=== PATIENT | female | born 1955 ===

== ENCOUNTER 2018-12-19 09:02 | Inpatient (IN) ==
--- NOTE | 2018-12-13 12:17 | PAT Medication Instructions ---
Medication Instructions Date of Service December 13, 2018 Home Medications atorvastatin 10 mg PO QAM bupropion HCl [Wellbutrin SR] 100 mg PO QDL cholecalciferol (vitamin D3) 1,000 unit PO QDL cyanocobalamin (vitamin B-12) 5,000 mcg SUBLINGUAL QAM insulin lispro 6 unit SUBCUT QDD insulin lispro 36 unit SUBCUT HS ipratropium-albuterol 3 ml INHALATION Q8H PRN isosorbide mononitrate 30 mg PO QAM losartan 50 mg PO QAM metformin 1,000 mg PO BID multivitamin 1 tab PO QAM omeprazole 20 mg PO QAM oxycodone 5 mg PO Q4 PRN zolpidem 10 mg PO HS PRN DO NOT take the morning of surgery cyanocobalamin (vitamin B-12) 5,000 mcg SUBLINGUAL QAM losartan 50 mg PO QAM metformin 1,000 mg PO BID multivitamin 1 tab PO QAM Take morning of surgery With a small sip of water, OTHERWISE NOTHING TO EAT OR DRINK AFTER MIDNIGHT: atorvastatin 10 mg PO QAM bupropion HCl [Wellbutrin SR] 100 mg PO QDL ipratropium-albuterol 3 ml INHALATION Q8H PRN (if needed) isosorbide mononitrate 30 mg PO QAM omeprazole 20 mg PO QAM oxycodone 5 mg PO Q4 PRN (if needed, may be taken up to four hours before surgery) Take evening before surgery insulin lispro 6 unit SUBCUT QDD insulin lispro 36 unit SUBCUT HS ipratropium-albuterol 3 ml INHALATION Q8H PRN (if needed) metformin 1,000 mg PO BID oxycodone 5 mg PO Q4 PRN (if needed) zolpidem 10 mg PO HS PRN (if needed) Other Notes If you have any questions please call us at [phone] or [phone] or [phone] or [phone]
--- NOTE | 2018-12-13 12:30 | Anesthesiology Consultation ---
Date of Service December 13, 2018 Assessment & Plan (1) Encounter for pre-operative examination: CHECK BSG AM DOS Chart Review Chart Review: Acceptable Risk for Surgery and Patient seen in Pre Admission Testing Teaching & Discussion Instructed NPO after midnight before surgery, except medications with 15 cc of water. Medication instructions provided according to the PAT guidelines. History Surgery Operation Date: 12/19/18 12:15 Proposed Procedures p Dorsal Column Stimulator Trial - Geo Robert DO Height/Weight Height: 5 ft 4 in Weight: 77.8 kg Allergies Allergy/AdvReac Type Severity Reaction Status Date / Time No Known Allergies Allergy Verified 12/07/18 11:28 Medications Home Medications Medication Instructions Recorded Confirmed Last Taken atorvastatin 10 mg PO QAM 12/07/18 12/07/18 Unknown bupropion HCl [Wellbutrin SR] 100 mg PO QDL 12/07/18 12/07/18 Unknown cholecalciferol (vitamin D3) 1,000 unit PO QDL 12/07/18 12/07/18 Unknown [Vitamin D3] cyanocobalamin (vitamin B-12) 5,000 mcg SUBLINGUAL QAM 12/07/18 12/07/18 Unknown [Vitamin B-12] insulin lispro 6 unit SUBCUT QDD 12/07/18 12/07/18 Unknown insulin lispro 36 unit SUBCUT HS 12/07/18 12/07/18 Unknown ipratropium-albuterol 3 ml INHALATION Q8H PRN 12/07/18 12/07/18 Unknown isosorbide mononitrate 30 mg PO QAM 12/07/18 12/07/18 Unknown losartan 50 mg PO QAM 12/07/18 12/07/18 Unknown metformin 1,000 mg PO BID 12/07/18 12/07/18 Unknown multivitamin 1 tab PO QAM 12/07/18 12/07/18 Unknown omeprazole 20 mg PO QAM 12/07/18 12/07/18 Unknown oxycodone 5 mg PO Q4 PRN 12/07/18 12/07/18 Unknown zolpidem 10 mg PO HS PRN 12/07/18 12/07/18 Unknown Past Medical History Medical History Anxiety Asthma Bilateral carotid bruits Carotid doppler done 12/14 showed <50% stenosis B/L COPD (chronic obstructive pulmonary disease) Centrolobular emphysema. +SOB with most activity. Noncompliant with inhalers. Instructed to use AM DOS. Sat 97% on RA at PAT. Chronic back pain Depression Diabetes type 2, controlled GERD (gastroesophageal reflux disease) High cholesterol History of kidney stones Hypertension Sleep apnea Has CPAP but has not used it x 1 yr since previous back surgery as she cannot sleep on her back. Exercise / Class Metabolic Activity III < 4 Walking/Shop/Light housework (+SOB with ambulation, pt feels maybe related to pain in addition to asthma/COPD, but denies any CP) Past Surgical History Surgical History History of back surgery X2 History of carpal tunnel release of both wrists Hx of cataract extraction BOTH Hx of cystoscopy Past Anesthesia History No Hx of Anesthesia Complications (other than PONV) and No Family Hx of Anesthesia Complications History of PONV No Hx of Motion Sickness and History of PONV (single episode of severe PONV after carpal tunnel (had GA)) Social History Smoking Status: Current every day smoker tobacco type: cigarettes Smoking cigarettes per day: 2-3 per day Do You Dip or Chew Tobacco: No Hx Alcohol Use: No Hx Substance Use: No Review of Systems Pt denies any recent chest pain, shortness of breath above baseline, palpitations, cough, fever or URI. Physical Exam Vital Signs BP: 122/73 P: 83bpm SPO2: 97% RA T: 98.4 F R: 18 ENMT Mouth: + dentures (upper only) and + edentulous Thyromental Distance: > or= 3.5 Finger Breadths (4) Mallampati Class: II Neck + short neck and + limited neck extension (limited by pain) Respiratory normal respiratory effort Auscultation: lungs clear to auscultation bilaterally Cardiovascular Rate/Rhythm: regular rate and regular rhythm Heart Sounds: no murmur Vessels: + carotid bruit (R>L) Extremities: no edema Testing Laboratory Results 12/13/18 12:44 12/13/18 12:44 PT 10.3 Seconds (9.0-12.0) 12/13/18 12:44 INR 1.0 (0.9-1.1) 12/13/18 12:44 APTT 26.5 Seconds (21.0-31.0) 12/13/18 12:44 Urine Color Yellow 12/13/18 Unknown Urine Appearance Clear (Clear) 12/13/18 Unknown Urine pH 6.0 (4.5-7.5) 12/13/18 Unknown Ur Specific [place] 1.018 (1.000-1.030) 12/13/18 Unknown Urine Protein Negative (Negative) 12/13/18 Unknown Urine Glucose (UA) 3+ (Negative) H 12/13/18 Unknown Urine Ketones Negative (Negative) 12/13/18 Unknown Urine Nitrite Negative (Negative) 12/13/18 Unknown Ur Leukocyte Esterase Trace (Negative) H 12/13/18 Unknown Urine WBC (Auto) 1-5 /hpf (0-5) 12/13/18 Unknown Urine RBC (Auto) 5-10 /hpf (0-4) H 12/13/18 Unknown U Hyaline Cast (Auto) 0 /lpf (0-5) 12/13/18 Unknown U Epithel Cells (Auto) 10-20 /lpf (0-5) H 12/13/18 Unknown Urine Bacteria (Auto) Negative (Negative) 12/13/18 Unknown Blood Type O Positive 12/13/18 12:44 Antibody Screen NEGATIVE 12/13/18 12:44 *Surgeon's office notified of elevated glucose. Nonfasting. Chest X-Ray Date: 12/13/18 Findings: + NAD Stress Test Date: 10/09/13 Type: exercise The patient's baseline EKG shows normal sinus rhythm with diffuse nonspecific ST-T wave changes in anterior lateral leads. Rest echo interpretation: LV wall thickness is normal. LV systolic function is normal with an estimated EF of 60%. There are no regional wall motion abnormali ties identified rest. Stress echo interpretation: There is overall improvement in the LV ejection fraction to 70 to 75%. There are no new regional wall motion normalities david ntified with stress. Other Testing Carotid Doppler 12/14/18 Less than 50% stenosis of internal carotid arteries bilaterally. Left subcla vian stenosis versus occlusion. *This result was faxed to PCP for their continued mgmt.
[2018-12-13 13:33] LABS: Basophils # (auto) 0.02 K/uL (0-0.2); Basophils % (auto) 0.2 %; Eosinophils # (auto) 0.15 K/uL (0-0.5); Eosinophils % (auto) 1.4 %; Immature Granulocytes # (auto) 0.02 K/uL (0.00-0.02); Immature Granulocytes % (auto) 0.2 %; Lymphocytes # (auto) 3.34 K/uL (1.2-3.4); Lymphocytes % (auto) 31.3 %; Mean Corpuscular Hgb Conc 34.1 g/dL (32-36); Mean Corpuscular Volume 81.2 fL (80-100); Monocytes # (auto) 0.52 K/uL (0.11-0.59); Monocytes % (auto) 4.9 %; Neutrophils # (auto) 6.63 K/uL (1.4-6.5); Platelet Count 277 K/uL (130-400); RDW Coefficient of Variation 12.7 % (11.5-14.5); RDW Standard Deviation 36.9 fL (36.4-46.3); Red Blood Count 5.05 M/uL (4.2-5.4); White Blood Count 10.68 K/uL (4.8-10.8)
[2018-12-13 13:36] LABS: Appearance Urine Clear (Clear); Bacteria Urine Automated Negative (Negative); Bilirubin Urine Negative (Negative); Blood Urine Negative (Negative); Cast Urine Automated 0 /lpf (0-5); Color Urine Yellow; Glucose Urine UA 3+ (Negative); Ketones Urine Negative (Negative); Leukocyte Esterase Urine Trace (Negative); Nitrite Urine Negative (Negative); Protein Urine Negative (Negative); Specific Gravity Urine 1.018 (1.000-1.030); Urobilinogen Urine Negative (Negative)
[2018-12-13 13:45] LABS: BUN Creatinine Ratio 7.1 (10-20); Calcium 9.3 mg/dl (8.5-10.1); Est GFR (African American) 106.9; Est GFR (Non-African American) 92.2; Potassium 3.7 mmol/L (3.5-5.1)
[2018-12-13 13:47] LABS: Partial Thromboplastin Time 26.5 Seconds (21.0-31.0); Prothrombin Time 10.3 Seconds (9.0-12.0)
--- NOTE | 2018-12-13 13:50 | XRay Report ---
XR chest Pre-admission PA/Lat CLINICAL HISTORY: Preoperative chest COMPARISON STUDY: No previous studies for comparison. FINDINGS: The cardiac and mediastinal contours are normal. There is no evidence of focal pulmonary co nsolidation. There is no evidence of failure. No pleural effusions are visualized.[ IMPRESSION: No active disease in the chest. Electronically signed by: Master Louis M.D. 12/13/2018 1:48 PM
[~2018-12-19 09:02] MED LIST: ACETAMINOPHEN 500 MG TAB PO SCH; CEFAZOLIN 1000MG 1,000 MG/7.5 ML SYR IV SCH; CeleBREX 200 MG CAP PO SCH; GABAPENTIN 600 MG DOSE PO SCH; LR 15ML/HR IV SCH
[2018-12-19] MEDS ORDERED: ATROPINE SULFATE 0.1 MG/ML 10ML SYR IV PRN (11:49)
[2018-12-19] MEDS ORDERED: ONDANSETRON INJ 2 MG/ML 2 ML VIAL IV PRN ×2 (11:49→15:43)
[2018-12-19] MEDS ORDERED: ePHEDrine sulfate 50 MG/ML AMP IV PRN (11:49)
--- NOTE | 2018-12-19 12:33 | History & Physical Bridge Note ---
Date of Service December 19, 2018 History & Physical Bridge Note I have examined the patient, reviewed the History & Physical and in the interval since the performance of the History & Physical I have noted the following changes of clinical significance: no changes noted
--- NOTE | 2018-12-19 12:34 | History & Physical Report ---
Date of Service December 19, 2018 Assessment & Plan (1) Chronic back pain greater than 3 months duration: Dorsal column stimulator trial Present on Admission?: Yes History of Present Illness Chief Complaint: Chronic back and leg pain Primary Care Provider: NO PCP This is a 62-year-old female that presents with chronic persistent back and leg pain. After failing extensive course of nonoperative care is here for a dorsal column stimulator trial. Allergies Allergy/AdvReac Type Severity Reaction Status Date / Time No Known Allergies Allergy Verified 12/19/18 10:08 Home Medications Home Medications Medication Instructions Recorded Confirmed Type atorvastatin 10 mg PO QAM 12/07/18 12/19/18 History bupropion HCl [Wellbutrin SR] 100 mg PO QDL 12/07/18 12/19/18 History cholecalciferol (vitamin D3) 1,000 unit PO QDL 12/07/18 12/19/18 History [Vitamin D3] insulin lispro 6 unit SUBCUT QDD 12/07/18 12/19/18 History insulin lispro 36 unit SUBCUT HS 12/07/18 12/19/18 History ipratropium-albuterol 3 ml INHALATION Q8H PRN 12/07/18 12/19/18 History isosorbide mononitrate 30 mg PO QAM 12/07/18 12/19/18 History losartan 50 mg PO QAM 12/07/18 12/19/18 History metformin 1,000 mg PO BID 12/07/18 12/19/18 History multivitamin 1 tab PO QAM 12/07/18 12/19/18 History omeprazole 20 mg PO QAM 12/07/18 12/19/18 History oxycodone 5 mg PO Q4 PRN 12/07/18 12/19/18 History zolpidem 10 mg PO HS PRN 12/07/18 12/19/18 History Past Med/Surg History Medical History Anxiety Asthma Bilateral carotid bruits Carotid doppler done 12/14 showed <50% stenosis B/L COPD (chronic obstructive pulmonary disease) Centrolobular emphysema. +SOB with most activity. Noncompliant with inhalers. Instructed to use AM DOS. Sat 97% on RA at PAT. Chronic back pain Depression Diabetes type 2, controlled GERD (gastroesophageal reflux disease) High cholesterol History of kidney stones Hypertension Sleep apnea Has CPAP but has not used it x 1 yr since previous back surgery as she cannot sleep on her back. Surgical History History of back surgery X2 History of carpal tunnel release of both wrists Hx of cataract extraction BOTH Hx of cystoscopy Social History Preferred Language: Lao Communication Ability: Effective Beliefs That Will Affect Care: None Current Living Situation: Alone Feels Safe at Home: Yes Smoking Status: Current every day smoker Tobacco Type: cigarettes Cigarettes Per Day: 2-3 per day Do You Dip or Chew Tobacco: No Second Hand Exposure: No Hx Alcohol Use: No Hx Substance Use: No Physical Exam Physical Exam: Patient is alert and oriented neurologically intact. Results & Data Vital Signs (Past 12 Hours) Vital Signs Temp Pulse Resp BP Pulse Ox 12/19/18 10:13 36.8 C 73 20 156/71 H 98
[2018-12-19] MEDS ORDERED: BUPIVACAINE 0.5 % 5 MG/1 ML MPF 30ML VIAL ONE (12:39)
[2018-12-19] MEDS ORDERED: BACITRACIN INJ 50,000 UNIT VIAL ONE (12:39)
[2018-12-19] MEDS ORDERED: MIDAZOLAM HCL 1 MG/ML 2ML VIAL ONE (12:41)
[2018-12-19] MEDS ORDERED: fentaNYL citrate 100 MCG/2 ML VIAL ONE ×3 (12:41→14:00)
[2018-12-19] MEDS ORDERED: FLOSEAL HEMOSTATIC MATRIX 10ML TOP ONE (13:20)
[2018-12-19] MEDS ORDERED: PROPOFOL IV EMULSION 10 MG/ML 20 ML VIAL IV ONE (13:22)
[2018-12-19] MEDS ORDERED: ONDANSETRON INJ 2 MG/ML 2 ML VIAL ONE (13:22)
[2018-12-19] MEDS ORDERED: DEXAMETHASONE SOD INJ 4 MG/ML VIAL ONE (13:22)
[2018-12-19] MEDS ORDERED: GLYCOPYRROLATE 0.2 MG/ML VIAL ONE (13:22)
[2018-12-19] MEDS ORDERED: NEOSTIGMINE METHYLSULFATE 1 MG/ML 10ML VIAL ONE (13:22)
[2018-12-19] MEDS ORDERED: LIDOCAINE HCL 2% 2 ML VIAL/AMP(20MG/ML) INFIL ONE (13:22)
[2018-12-19] MEDS ORDERED: ROCURONIUM BROMIDE 10 MG/ML 5 ML VIAL ONE (13:22)
[2018-12-19] MEDS ORDERED: ePHEDrine sulfate 50 MG/ML SYR ONE (14:00)
--- NOTE | 2018-12-19 14:01 | Operative Report ---
Post Operative Report Pre & Post Diagnosis Operation Date: 12/19/18 12:05 Pre-Op Diagnosis: Lumbar Post Laminectomy Syndrome Post-Op Diagnosis: Lumbar Post Laminectomy Syndrome Operation Date: 12/20/18 13:05 <No data on this case meets the specified criteria> Procedure Operation Date: 12/19/18 12:05 Actual Procedures #1 T10 laminotomy. #2 placement of a 16-lead dorsal column stimulator paddle with temporary leads. Surgeon Geo Robert, DO Environmental Marketer None Estimated Blood Loss 20 Findings Consistent with Post-Op Diagnosis Specimens None Indications This is a 62-year-old female that presents with chronic persistent back and bilateral leg pain. After failing extensive course of nonoperative care she is here to undergo dorsal column stimulator trial. Description of Procedure Patient was met with identified and informed consent obtained. Patient was then taken to the operative suite underwent intubation and placed in the prone position the Tommy table on top of the Heath frame. All bony prominences well-padded eyes inspected to ensure no external pressure placed upon the peer at this point the thoracic spine was prepped and draped in normal sterile fashion. Sharp dissection with the assistance of Bovie cautery was performed down to and exposing the interlaminar space at T10-T11 bilaterally. Then performed a midline decompression. Decompression was large enough to pass a 16- lead dorsal column stimulator paddle into the canal between T8 and T10. I verified my position with fluoroscopy. After this was complete temporary leads were attached and and by way of a trocar taken to the left flank. There was subsequently attached to the transmitter tested for efficacy. Once this was established. The stimulator leads were sewn into position with silk ties. The incision was then closed with 1 Vicryl fascia 2-0 Vicryl subcutaneously and 4 Monocryl for final skin closure. Steri-Strip sterile dressings placed. Patient awakened taken to PACU in stable condition. I attest to the content of the Intraoperative Record and any orders documented therein. Any exceptions are noted below.
[2018-12-19] MEDS: fentaNYL citrate 100 MCG/2 ML VIAL IV PRN ×4 (14:19→14:38)
--- NOTE | 2018-12-19 14:28 | Fluoroscopy Report ---
FL spine 1V any level CLINICAL HISTORY: DORSAL COLUMN STIMULATOR TRIAL COMPARISON STUDY: None. FLUOROSCOPY TIME: 9 seconds. FINDINGS: Single fluoroscopic spot image demonstrates a spinal stimulator lead positioned within the lower thoracic region. IMPRESSION: Fluoroscopy provided for spinal stimulator lead placement. Electronically signed by: Deuce Macias M.D. 12/19/2018 2:26 PM
--- NOTE | 2018-12-19 15:06 | Anesthesiology Progress Note ---
Date of Service December 19, 2018 Anesthesia Post Procedure Vital Signs Vital Signs: Temp Pulse Pulse Resp BP Pulse Ox 12/19/18 15:00 97.0 F L 77 17 132/77 96 12/19/18 14:50 74 15 148/67 H 95 12/19/18 14:40 69 14 142/69 H 96 12/19/18 14:30 69 13 142/69 H 96 12/19/18 14:20 71 15 144/65 H 100 12/19/18 14:10 74 16 158/85 H 99 12/19/18 14:04 97.0 F L 79 24 150/70 H 96 12/19/18 10:13 98.2 F 73 20 156/71 H 98 Pain Intensity Lower Back: Pain Intensity: 5 Transfer of Care Handoff Completed per policy Notes Mental Status: alert / awake / arousable and participated in evaluation Patient Amnestic to Procedure: Yes Nausea / Vomiting: adequately controlled Pain: adequately controlled Airway Patency, RR, SpO2: stable & adequate BP & HR: stable & adequate Hydration State: stable & adequate Anesthetic Complications: no major complications apparent and Pt Satisfied with anesthetic care
[2018-12-19] MEDS ORDERED: LORazepam 1 MG/2 ML VIAL IV PRN (15:43)
[2018-12-19] MEDS ORDERED: DO NOT ADMINISTER FLU VACCINE PRN (15:43)
[2018-12-19] MEDS ORDERED: LORazepam 1 MG TAB PO PRN (15:43)
[2018-12-19] MEDS ORDERED: DO NOT ADMINISTER PNEUMOCOCCAL VACCINE PRN (15:43)
[2018-12-19] MEDS ORDERED: ALBUT/IPRATROP 3MG/0.5MG NEB 3 ML VIAL INH PRN (15:43)
[2018-12-19] MEDS ORDERED: ZOLPIDEM TARTRATE 10 MG TAB PO PRN (15:43)
[2018-12-19] MEDS ORDERED: ACETAMINOPHEN 500 MG TAB PO PRN (15:43)
[2018-12-19] MEDS ORDERED: MAGNESIUM HYDROXIDE SUSP 30 ML UDC PO PRN (15:43)
[2018-12-19] MEDS ORDERED: GLUCOSE 40% GEL 15 GM TUBE PO PRN (16:05)
[2018-12-19] MEDS ORDERED: DEXTROSE 50% 50 ML SYRINGE IV PRN (16:05)
[2018-12-19] MEDS: HYDROmorphone INJ 1 MG/ML SYRINGE IV PRN (16:05)
[2018-12-19] MEDS ORDERED: GLUCOSE 10 TABS/TUBE PO PRN (16:05)
[2018-12-19] MEDS ORDERED: CARBOHYDRATES FOR HYPOGLYCEMIA PO PRN (16:05)
[2018-12-19] MEDS ORDERED: GLUCAGON FOR INJ 1 MG VIAL SQ PRN (16:05)
--- NOTE | 2018-12-19 16:41 | Consultation ---
Date of Consultation December 19, 2018 Assessment & Plan (1) Postoperative state: (2) Chronic back pain: S/P Spinal cord stimulator placement POD #[address] Yesica ERIC 20 ml tolerated procedure well pain/wound management per ortho activity and therapy as directed by ortho incentive spirometry monitor h/h (3) Diabetes type 2, controlled: unknown A1C, obtain in a.m. Home regimen: Lantus 36 units at night along with lispro 6 units with dinner Will place on Lantus 0-20 units and titrate accordingly novolog per protocol pt didn't not receive steroids continue losartan for renal protection (4) COPD (chronic obstructive pulmonary disease): No acute exacerbation Nebulizer treatments as needed Encourage incentive spirometry (5) Hypertension: Blood pressure stable on losartan Monitor (6) High cholesterol: Continue atorvastatin (7) Depression: Continue Wellbutrin Mood stable (8) GERD (gastroesophageal reflux disease): Continue PPI (9) Tobacco use: Pt declines nicotine patch (10) DVT prophylaxis: SCDS/Teds per surgery Disposition: per attending Follow up: PCP CAROLINA Koch PA Patient was seen and examined in collaboration with Dr. Norris, please see addendum Starting 12/20/18 patient will be under the care of Dr. Mcgee Thank you for this consultation. We will follow the patient with you during their hospital stay. You can reach a [facility] of [facility] via pager @ [phone]. Supervising Physician Co-Signing Physician Notes Patient is a 62-year-old female with history of diabetes, hypertension, COPD, tobacco use disorder, obstructive sleep apnea and other problems was seen and examined postop after having elective T10 laminotomy, placement of 16 8 dorsal column stimulator by Dr. Robert today. Patient complains of pain at surgical site. Also reports chronic bilateral lower extremity numbness. She denies any chest pain, shortness of breath, dizziness, nausea, abdominal pain. On exam patient is moderately built and nourished, mild distress secondary to back pain, normocephalic atraumatic, lungs are clear to auscultation, S1-S2,+ systolic murmur, abdomen soft, non-tender, bowel sounds are present, Back- + stimulator, surgical site in dressing , grossly no focal neurological deficits, no pedal edema. Monitor for postop anemia. Bowel regimen to prevent constipation. Pain control, DVT prophylaxis, wound care as per primary team. Agree with insulin therapy and holding p.o. meds while hospitalized. I personally reviewed the record. Patient is interviewed and examined at bedside. Patient's care is coordinated with Karla Romero PA-C. Please refer to the documentation above for details of patient's presentation and for discussion of other issues. History of Present Illness Requesting Physician: Dr. Robert Reason for Consultation: Postop medical management Attending Physician: Geo Robert, History of Present Illness This is a 62-year-old female who has a significant past medical history of T2DM, HTN, HLD, COPD, tobacco use, FRANCISCO, chronic back pain who presents to [facility] for elective lumbar procedure by Dr. Robert. She had lumbar surgery approximately 9 months ago down at [facility]. She has been continuing to have chronic pain therefore she underwent spinal stimulator placement today. Her daughter is at bedside. Currently she has 7/10 pain and is, "hungry." Denies fever, chills, sweats, lightheadedness, dizziness, chest pain, shortness of breath at rest, ADAN, nausea, vomiting, diarrhea, abdominal pain. 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 Has good appetite. Had minimal post op nausea bt this has since resolved. Allergies Allergy/AdvReac Type Severity Reaction Status Date / Time No Known Allergies Allergy Verified 12/19/18 10:08 Home Medications Home Medications Medication Instructions Recorded Confirmed Type atorvastatin 10 mg PO QAM 12/07/18 12/19/18 History bupropion HCl [Wellbutrin SR] 100 mg PO QDL 12/07/18 12/19/18 History cholecalciferol (vitamin D3) 1,000 unit PO QDL 12/07/18 12/19/18 History [Vitamin D3] insulin lispro 6 unit SUBCUT QDD 12/07/18 12/19/18 History ipratropium-albuterol 3 ml INHALATION Q8H PRN 12/07/18 12/19/18 History losartan 50 mg PO QAM 12/07/18 12/19/18 History metformin 1,000 mg PO BID 12/07/18 12/19/18 History multivitamin 1 tab PO QAM 12/07/18 12/19/18 History omeprazole 20 mg PO QAM 12/07/18 12/19/18 History oxycodone 5 mg PO Q4 PRN 12/07/18 12/19/18 History zolpidem 10 mg PO HS PRN 12/07/18 12/19/18 History insulin glargine [Lantus Solostar 36 unit SUBCUT HS 12/19/18 12/19/18 History U-100 Insulin] isosorbide mononitrate 30 mg PO DAILY 12/19/18 12/19/18 History Patient History Family History Mother Coronary heart disease Pacemaker Father Stroke Social History Preferred Language: Belarusian Communication Ability: Effective Beliefs That Will Affect Care: None Current Living Situation: Alone Feels Safe at Home: Yes Smoking Status: Current every day smoker Tobacco Type: cigarettes Cigarettes Per Day: 2-3 per day Do You Dip or Chew Tobacco: No Second Hand Exposure: No Hx Alcohol Use: No Hx Substance Use: No Review of Systems Review of Systems: As noted per HPI, 10 systems reviewed and negative unless noted above. Physical Exam Physical Exam: Gen: WD/WN, F, appears in pain, sitting up in bed, pleasant, conversing easily Head: Normocephalic, Atraumatic Eyes: Sclera normal, no conjunctival injection, PERRLA, EOMI ENT: Gross hearing intact, normal pharynx, mucous membranes moist Neck: supple, no adenopathy, No JVD, no bruit, Resp: Clear to auscultation b/l, no wheeze, rales, rhonchi. Normal insp/exp effort, no accessory muscle use CV: Regular rate, regular rhythm, 1/6 MARIA E noted rusb, no rub, gallop, or ectopy Abd: +BS x 4, soft, nontender, nondistended Musculoskeletal: moves extremities active rom x 4, strength intact, good shrimp picker strength Extremities: No edema bilaterally Skin: warm, moist, no rash, negative turgor, cap refill < 2sec, lumbar dressing CDI Neuro: Alert and oriented x 3, speech normal, good mood/affect, cran nerve 2-12 intact grossly : deferred Results & Data Vital Signs (Past 12 Hours) Vital Signs Temp Pulse Pulse Resp BP Pulse Ox 12/19/18 16:15 36.6 C 75 17 127/71 96 12/19/18 15:45 36.8 C 79 16 122/64 93 12/19/18 15:30 72 17 138/69 96 12/19/18 15:15 71 14 140/69 95 12/19/18 15:10 71 19 140/72 96 12/19/18 15:00 36.1 C L 77 17 132/77 96 12/19/18 14:50 74 15 148/67 H 95 12/19/18 14:40 69 14 142/69 H 96 12/19/18 14:30 69 13 142/69 H 96 12/19/18 14:20 71 15 144/65 H 100 12/19/18 14:10 74 16 158/85 H 99 12/19/18 14:04 36.1 C L 79 24 150/70 H 96 12/19/18 10:13 36.8 C 73 20 156/71 H 98 Laboratory Results Preoperative lab data include: CBC: WBC 10.68, hemoglobin 14.0, hematocrit 41.0, PLT 277 BMP: Na 141, K 3.7, Bun 5, Cr 0.70, glucose 238 CXR: no acute abnormality Diagnostic Findings Lumbar Spine Xray: FINDINGS: Single fluoroscopic spot image demonstrates a spinal stimulator lead positioned within the lower thoracic region. IMPRESSION: Fluoroscopy provided for spinal stimulator lead placement. Medications Administered Hydromorphone HCl (Dilaudid) 1 mg IV Q3H PRN PRN Reason: MODERATE Pain 4,5,6 Stop: 01/02/19 15:42 Last Admin: 12/19/18 16:05 Dose: 1 mg Documented by: [id number] Discontinued Medications Acetaminophen (Tylenol) 1,000 mg PO PREOP NANCY Stop: 12/19/18 18:00 Last Admin: 12/19/18 10:33 Dose: 1,000 mg Documented by: [id number] Bacitracin (Bacitracin) Confirm Administered Dose 50,000 units .ROUTE .STK-MED ONE Stop: 12/19/18 12:40 Last Admin: 12/19/18 13:56 Dose: 50,000 units Documented by: [id number] Bupivacaine HCl (Marcaine 0.5% Mpf) Confirm Administered Dose 30 ml .ROUTE .STK- MED ONE Stop: 12/19/18 12:40 Last Admin: 12/19/18 13:20 Dose: 10 ml Documented by: [id number] Celecoxib (Celebrex) 200 mg PO PREOP NANCY Stop: 12/19/18 18:00 Last Admin: 12/19/18 10:32 Dose: 200 mg Documented by: [id number] Fentanyl Citrate (Fentanyl Citrate) 50 mcg IV Q5M PRN PRN Reason: PACU Use Only-Pain Stop: 12/19/18 16:49 Last Admin: 12/19/18 14:38 Dose: 50 mcg Documented by: [id number] Admin: 12/19/18 14:33 Dose: 50 mcg Documented by: [id number] Admin: 12/19/18 14:25 Dose: 50 mcg Documented by: [id number] Admin: 12/19/18 14:19 Dose: 50 mcg Documented by: [id number] Gabapentin (Neurontin) 600 mg PO PREOP NANCY Stop: 12/19/18 18:00 Last Admin: 12/19/18 10:32 Dose: 600 mg Documented by: [id number] Lactated Ringer's (Lr) 1,000 mls @ 15 mls/hr IV .Q24H NANCY Stop: 12/20/18 05:59 Last Infusion: 12/19/18 12:56 Dose: 0 mls/hr Documented by: [id number] Admin: 12/19/18 10:16 Dose: 15 mls/hr Documented by: [id number] Cefazolin Sodium (Ancef 1000mg) 1,000 mg in 7.5 mls @ 2.5 mls/min IV PREOP NACNY Stop: 12/19/18 18:00 Last Admin: 12/19/18 12:56 Dose: 2.5 mls/min Documented by: [id number] Miscellaneous (Floseal Hemostatic Matrix 10ml) 10 ml TOP ONCE ONE Stop: 12/19/18 13:21 Last Admin: 12/19/18 13:56 Dose: 8 ml Documented by: [id number] ECG Rate (beats per minute): 77 Findings: + prolonged QT (QTC 461ms)
[2018-12-19] MEDS: INSULIN ASPART 100 UNITS/ML 3 ML PEN SC SCH ×2 (18:11→21:06)
[2018-12-19] MEDS ORDERED: COUGH DROP (SUGAR FREE) LOZ 24 LOZ/1 BOX BUCCAL PRN (20:50)
[2018-12-19] MEDS ORDERED: COUGH DROP (SUGAR FREE) LOZ 24 LOZ/1 BOX BUCCAL ONE (20:54)
[2018-12-19] MEDS: SODIUM CHLORIDE 0.9% 1000ML 1,000 ML IV SCH (20:56)
[2018-12-19] MEDS: CEFAZOLIN 2000MG 2,000 MG/15 ML SYR IV SCH (20:57)
[2018-12-19] MEDS: DOCUSATE SODIUM 100 MG CAP PO SCH (21:03)
[2018-12-19] MEDS: INSULIN GLARGINE SOLOSTAR 100 UNITS/ML 3 ML PEN SC SCH (21:03)
[2018-12-19] MEDS: OXYCODONE HCL IR 5 MG TAB (IMMEDIATE RELEASE) PO PRN (21:39)
[2018-12-20] MEDS: CEFAZOLIN 2000MG 2,000 MG/15 ML SYR IV SCH ×2 (02:59→11:36)
[2018-12-20] MEDS: OXYCODONE HCL IR 5 MG TAB (IMMEDIATE RELEASE) PO PRN ×2 (03:02→21:24)
[2018-12-20] MEDS ORDERED: Nursing to Pharmacy Communication ONE ×2 (04:57→16:15)
[2018-12-20] MEDS: INSULIN ASPART 100 UNITS/ML 3 ML PEN SC SCH ×4 (06:15→21:19)
[2018-12-20] MEDS: SODIUM CHLORIDE 0.9% 1000ML 1,000 ML IV SCH (06:18)
[2018-12-20 07:13] LABS: Hematocrit (blood only) 38.2 % (37-47); Mean Corpuscular Volume 82.2 fL (80-100); Mean Platelet Volume 10.7 fL (7.4-10.4); Platelet Count 218 K/uL (130-400); RDW Coefficient of Variation 12.6 % (11.5-14.5); RDW Standard Deviation 37.8 fL (36.4-46.3); Red Blood Count 4.65 M/uL (4.2-5.4); White Blood Count 18.68 K/uL (4.8-10.8)
[2018-12-20 07:36] LABS: Estimated Average Glucose 194 mg/dl; Hemoglobin A1C 8.4 % (4.5-5.6)
[2018-12-20 07:39] LABS: BUN Creatinine Ratio 13.7 (10-20); Calcium 8.4 mg/dl (8.5-10.1); Creatinine Clr Calc Pharmacy 77.3 ml/min; Est GFR (African American) 99.2; Est GFR (Non-African American) 85.6; Potassium 3.9 mmol/L (3.5-5.1)
--- NOTE | 2018-12-20 07:54 | Anesthesiology Progress Note ---
Date of Service December 20, 2018 Anesthesia Post Procedure Vital Signs Vital Signs: Temp Pulse Pulse Pulse Pulse Pulse Resp 12/20/18 07:47 36.8 C 73 16 12/20/18 03:00 36.8 C 70 16 12/20/18 02:03 74 18 12/19/18 23:12 36.3 C L 79 16 12/19/18 22:59 81 16 12/19/18 19:03 36.7 C 88 16 12/19/18 18:07 37.1 C 72 18 12/19/18 16:50 36.7 C 71 18 12/19/18 16:15 36.6 C 75 17 12/19/18 15:45 36.8 C 79 16 12/19/18 15:30 72 17 12/19/18 15:15 71 14 12/19/18 15:10 71 19 12/19/18 15:00 36.1 C L 77 17 12/19/18 14:50 74 15 12/19/18 14:40 69 14 12/19/18 14:30 69 13 12/19/18 14:20 71 15 12/19/18 14:10 74 16 12/19/18 14:04 36.1 C L 79 24 12/19/18 10:13 36.8 C 73 20 BP BP Pulse Ox 12/20/18 07:47 138/71 97 12/20/18 03:00 122/67 98 12/20/18 02:03 95 12/19/18 23:12 129/72 97 12/19/18 22:59 96 12/19/18 19:03 133/68 97 12/19/18 18:07 116/64 97 12/19/18 16:50 132/65 97 12/19/18 16:15 127/71 96 12/19/18 15:45 122/64 93 12/19/18 15:30 138/69 96 12/19/18 15:15 140/69 95 12/19/18 15:10 140/72 96 12/19/18 15:00 132/77 96 12/19/18 14:50 148/67 H 95 12/19/18 14:40 142/69 H 96 12/19/18 14:30 142/69 H 96 12/19/18 14:20 144/65 H 100 12/19/18 14:10 158/85 H 99 12/19/18 14:04 150/70 H 96 12/19/18 10:13 156/71 H 98 Pain Intensity Lower Back: Pain Intensity: 8 Notes Mental Status: alert / awake / arousable and participated in evaluation Patient Amnestic to Procedure: Yes Nausea / Vomiting: adequately controlled Pain: adequately controlled Airway Patency, RR, SpO2: stable & adequate BP & HR: stable & adequate Hydration State: stable & adequate Anesthetic Complications: no major complications apparent and Pt Satisfied with anesthetic care
[2018-12-20] MEDS: DOCUSATE SODIUM 100 MG CAP PO SCH ×2 (08:27→21:19)
[2018-12-20] MEDS: LOSARTAN POTASSIUM 50 MG TAB PO SCH (08:27)
[2018-12-20] MEDS: ISOSORBIDE MONO EXTENDED REL 30 MG TABCR PO SCH (08:27)
[2018-12-20] MEDS: MULTIVITAMIN TAB PO SCH (08:28)
[2018-12-20] MEDS: PANTOprazole 40 MG TAB PO SCH (08:28)
[2018-12-20] MEDS: ATORVASTATIN 10 MG TAB PO SCH (08:28)
[2018-12-20] MEDS ORDERED: ISOSORBIDE MONO EXTENDED REL 30 MG TABCR PO SCH (09:00)
--- NOTE | 2018-12-20 10:01 | Hospitalist Progress Note ---
Date of Service December 20, 2018 Assessment & Plan (1) Postoperative state: (2) Chronic back pain: POD #1 s/p spinal cord stimulator placement with temporary leads by Dr. Robert EBMaddi 20 ml. Hgb stable at 13 (pre-op hgb of 14) Leukocytosis of 18k post-operatively after steroids. Afebrile and no evidence of infection. Likely reactive. Continue to monitor Per ortho for pain control, wound care and activities Continue incentive spirometry, PT/OT when appropriate Plans to return to OR today for permanent lead placement (3) Diabetes type 2, controlled: A1c of 8.4 with BSG ranging 191-288 post-operatively, was given dexamethasone 8mg pre-operatively Home regimen: Lantus 36 units at night along with lispro 6 units with dinner Continue Lantus sliding scale 0-20 units, novolog per protocol BSG AC HS. Continue losartan for renal protection (4) COPD (chronic obstructive pulmonary disease): No acute exacerbation Nebulizer treatments as needed Encourage incentive spirometry (5) Hypertension: Blood pressure stable on losartan Monitor BP (6) High cholesterol: Continue atorvastatin (7) Depression: Continue Wellbutrin Mood stable (8) GERD (gastroesophageal reflux disease): Continue PPI (9) Tobacco use: Pt declines nicotine patch (10) DVT prophylaxis: SCDS/Teds per surgery Disposition: per primary service Follow up: PCP CAROLINA Koch PA Patient seen in collaboration with Dr. Mcgee. Please see addendum. Thank you for this consultation. We will follow the patient with you during their hospital stay. You [facility] via pager @ [phone]. Supervising Physician Co-Signing Physician Notes I have seen and examined the patient and have discussed the case with the provider above. I agree with the assessment and plan as stated with the following exceptions. She is now post-op and doing well. She is hungry and waiting for her food to arrive. She is in NAD and is mentating well. Heart exam is normal. Lungs are clear to auscultation. Reports some numbness in her feet, but has good pulses and is NVI. Cont insulin for glucose control with tighter carb coverage. Adjust daily as needed. Thank you for this consultation. DO Everardo Subjective Patient seen and examined in [facility] this morning. Experiencing right sided lumbar back pain after dorsal column stimulator placement with temporary leads yesterday. Endorses chronic bilateral lower extremity paresthesias. Was made NPO at midnight and will return to OR for permanent lead placement for dorsal column stimulator placement. Denies fever, chills, chest pain, SOB, nausea, vomiting, abdominal pain or dysuria. Review of Systems Review of Systems: At least ten systems reviewed and negative except as noted in the HPI. Physical Exam Physical Exam: General Appearance: WD/WN, no apparent distress Head: normocephalic, atraumatic Eyes: normal inspection, PERRL, EOMI ENT: hearing grossly normal, pharynx normal (moist mucous membranes) Neck: supple, no JVD, no adenopathy Respiratory/Chest: lungs clear to auscultation. No wheezes, rales or rhonci. No respiratory distress or accessory muscle use Cardiovascular: regular rate, rhythm, systolic murmur, normal peripheral pulses Abdomen/GI: normal bowel sounds, soft, non-tender to palpation Extremities/Musculoskelatal: Dorsal stim device left lumbar spine. Dressings with small amount of sanguineous drainage. R lumbar spine TTP. No calf tenderness, normal capillary refill Neurologic/Psych: alert, normal mood/affect, oriented x 3 Skin: normal color, warm/dry Results & Data Vital Signs (Past 12 Hours) Vital Signs Temp Pulse Pulse Pulse Resp BP BP 12/20/18 07:47 36.8 C 73 16 138/71 12/20/18 03:00 36.8 C 70 16 122/67 12/20/18 02:03 74 18 12/19/18 23:12 36.3 C L 79 16 129/72 12/19/18 22:59 81 16 Pulse Ox 12/20/18 07:47 97 12/20/18 03:00 98 12/20/18 02:03 95 12/19/18 23:12 97 12/19/18 22:59 96 Laboratory Results Short CBC 12/20/18 Range/Units 06:48 WBC 18.68 H (4.8-10.8) K/uL Hgb 13.0 (12.0-16.0) g/dL Hct 38.2 (37-47) % Plt Count 218 (130-400) K/uL BMP 12/20/18 06:48 Sodium 138 Potassium 3.9 Chloride 107 Carbon Dioxide 25 BUN 10 Creatinine 0.74 Glucose 218 H Calcium 8.4 L
[2018-12-20] MEDS: BuPROPion SR 100 MG TABCR PO SCH (11:36)
--- NOTE | 2018-12-20 12:44 | Anesthesiology Consultation ---
Date of Service December 20, 2018 Assessment & Plan (1) Encounter for pre-operative examination: Chart Review Chart Review: Acceptable Risk for Surgery History Surgery Operation Date: 12/19/18 12:05 Proposed Procedures p Dorsal Column Stimulator Trial - Geo Robert DO Operation Date: 12/20/18 13:05 Proposed Procedures p Spinal Cord Stimulator Implant - Geo Robert DO Height/Weight Height: 5 ft 4 in Weight: 77.428 kg Allergies Allergy/AdvReac Type Severity Reaction Status Date / Time No Known Allergies Allergy Verified 12/19/18 10:08 Medications Home Medications Medication Instructions Recorded Confirmed Last Taken atorvastatin 10 mg PO QAM 12/07/18 12/19/18 12/18/18 22:00 bupropion HCl [Wellbutrin SR] 100 mg PO QDL 12/07/18 12/19/18 12/18/18 08:00 cholecalciferol (vitamin D3) 1,000 unit PO QDL 12/07/18 12/19/18 12/18/18 08:00 [Vitamin D3] insulin lispro 6 unit SUBCUT QDD 12/07/18 12/19/18 12/18/18 16:30 ipratropium-albuterol 3 ml INHALATION Q8H PRN 12/07/18 12/19/18 Unknown losartan 50 mg PO QAM 12/07/18 12/19/18 12/18/18 08:00 metformin 1,000 mg PO BID 12/07/18 12/19/18 12/18/18 12:00 multivitamin 1 tab PO QAM 12/07/18 12/19/18 12/18/18 22:00 omeprazole 20 mg PO QAM 12/07/18 12/19/18 2 Weeks Ago ~12/05/18 oxycodone 5 mg PO Q4 PRN 12/07/18 12/19/18 12/18/18 18:00 zolpidem 10 mg PO HS PRN 12/07/18 12/19/18 12/18/18 21:30 insulin glargine [Lantus Solostar 36 unit SUBCUT HS 12/19/18 12/19/18 12/18/18 21:00 U-100 Insulin] isosorbide mononitrate 30 mg PO DAILY 12/19/18 12/19/18 Unknown Active Medications Generic Name Dose Route Start Last Admin Trade Name Freq PRN Reason Stop Dose Admin Atorvastatin Calcium 10 mg 12/20/18 09:00 12/20/18 08:28 Lipitor PO 01/19/19 08:59 10 mg QAM NANCY Administration Bupropion HCl 100 mg 12/20/18 11:30 12/20/18 11:36 Wellbutrin-Sr PO 01/19/19 11:29 100 mg QDL NANCY Administration Docusate Sodium 100 mg 12/19/18 21:00 12/20/18 08:27 Colace PO 01/18/19 20:59 100 mg BID NANCY Administration Hydromorphone HCl 1 mg 12/19/18 15:43 12/19/18 16:05 Dilaudid IV 01/02/19 15:42 1 mg Q3H PRN Administration MODERATE Pain 4,5,6 Sodium Chloride 1,000 mls @ 80 mls/hr 12/19/18 16:00 12/20/18 12:23 Nss 1000ml IV 12/20/18 15:59 Infused .[id number] NANCY Infusion Insulin Aspart 0 units 12/20/18 06:00 12/20/18 12:06 Novolog Flexpen SC 01/19/19 05:59 2 units Q6 NANCY Administration Insulin Glargine 0 - 20 units 12/19/18 21:00 12/19/18 21:03 Lantus Solostar Pen SC 01/18/19 20:59 20 units HS NANCY Administration Protocol Isosorbide Mononitrate 30 mg 12/20/18 09:00 12/20/18 08:27 Imdur Extended Rel PO 01/19/19 08:59 30 mg DAILY NANCY Administration Losartan Potassium 50 mg 12/20/18 09:00 12/20/18 08:27 Cozaar PO 01/19/19 08:59 50 mg QAM NANCY Administration Multivitamins 1 tab 12/20/18 09:00 12/20/18 08:28 Multivitamin Tab PO 01/19/19 08:59 1 tab QAM NANCY Administration Oxycodone HCl 5 mg 12/19/18 15:43 12/20/18 03:02 Roxicodone Immediate Rel PO 01/02/19 15:42 5 mg Q4H PRN Administration MODERATE Pain 4,5,6 Pantoprazole Sodium 40 mg 12/20/18 09:00 12/20/18 08:28 Protonix PO 01/19/19 08:59 40 mg QAM NANCY Administration NPO Date Last Intake of Fluids: 12/19/18 Time Last Intake of Fluids: 23:59 Date Last Intake of Solids: 12/19/18 Time Last Intake of Solids: 23:59 Past Medical History Medical History Hypertension COPD (chronic obstructive pulmonary disease) Centrolobular emphysema. +SOB with most activity. Noncompliant with inhalers. Instructed to use AM DOS. Sat 97% on RA at PAT. Asthma Sleep apnea Has CPAP but has not used it x 1 yr since previous back surgery as she cannot sleep on her back. High cholesterol Anxiety Depression GERD (gastroesophageal reflux disease) History of kidney stones Chronic back pain Diabetes type 2, controlled Bilateral carotid bruits Carotid doppler done 12/14 showed <50% stenosis B/L Past Family History Family History Mother Coronary heart disease Pacemaker Father Stroke Social History Smoking Status: Current every day smoker tobacco type: cigarettes Smoking cigarettes per day: 2-3 per day Do You Dip or Chew Tobacco: No Hx Alcohol Use: No Hx Substance Use: No Physical Exam Vital Signs Last Vital Signs Temp 36.9 C 12/20/18 12:26 Pulse 63 12/20/18 12:26 Resp 18 12/20/18 12:26 BP 132/64 12/20/18 12:26 Pulse Ox 98 12/20/18 12:26 Testing Laboratory Results 12/20/18 06:48 12/20/18 06:48 PT 10.3 Seconds (9.0-12.0) 12/13/18 12:44 INR 1.0 (0.9-1.1) 12/13/18 12:44 APTT 26.5 Seconds (21.0-31.0) 12/13/18 12:44 Hemoglobin A1c 8.4 % (4.5-5.6) H 12/20/18 06:48 Urine Color Yellow 12/13/18 Unknown Urine Appearance Clear (Clear) 12/13/18 Unknown Urine pH 6.0 (4.5-7.5) 12/13/18 Unknown Ur Specific [place] 1.018 (1.000-1.030) 12/13/18 Unknown Urine Protein Negative (Negative) 12/13/18 Unknown Urine Glucose (UA) 3+ (Negative) H 12/13/18 Unknown Urine Ketones Negative (Negative) 12/13/18 Unknown Urine Nitrite Negative (Negative) 12/13/18 Unknown Ur Leukocyte Esterase Trace (Negative) H 12/13/18 Unknown Urine WBC (Auto) 1-5 /hpf (0-5) 12/13/18 Unknown Urine RBC (Auto) 5-10 /hpf (0-4) H 12/13/18 Unknown U Hyaline Cast (Auto) 0 /lpf (0-5) 12/13/18 Unknown U Epithel Cells (Auto) 10-20 /lpf (0-5) H 12/13/18 Unknown Urine Bacteria (Auto) Negative (Negative) 12/13/18 Unknown Blood Type O Positive 12/13/18 12:44 Antibody Screen NEGATIVE 12/13/18 12:44 12/20/18 12/20/18 12/20/18 12:03 07:59 05:46 POC Glucose 192 H 207 H 227 H Electrocardiogram Date: 12/13/18 Findings: + NSR @ (09)
[2018-12-20] MEDS ORDERED: ATROPINE SULFATE 0.1 MG/ML 10ML SYR IV PRN (12:46)
[2018-12-20] MEDS ORDERED: ONDANSETRON INJ 2 MG/ML 2 ML VIAL IV PRN (12:46)
[2018-12-20] MEDS ORDERED: LABETALOL HCL IV 5 MG/ML 20ML IV PRN (12:46)
[2018-12-20] MEDS ORDERED: PROMETHAZINE HCL 12.5 MG in SODIUM CHLORIDE 0.9% 50 ML IV PRN (12:46)
--- NOTE | 2018-12-20 13:29 | History & Physical Bridge Note ---
Date of Service December 20, 2018 History & Physical Bridge Note I have examined the patient, reviewed the History & Physical and in the interval since the performance of the History & Physical I have noted the following changes of clinical significance: no changes noted patient is responded wonderfully from her dorsal column stimulator trial would like to have formal implantation.
[2018-12-20] MEDS ORDERED: MIDAZOLAM HCL 1 MG/ML 2ML VIAL ONE (13:35)
[2018-12-20] MEDS ORDERED: fentaNYL citrate 100 MCG/2 ML VIAL ONE ×2 (13:35→14:07)
[2018-12-20] MEDS ORDERED: BACITRACIN INJ 50,000 UNIT VIAL ONE (13:39)
[2018-12-20] MEDS ORDERED: BUPIVACAINE/EPINEPHRINE 0.5% MPF 1:200,000 30 ML VIAL ONE (13:39)
[2018-12-20] MEDS ORDERED: HYDROmorphone INJ 2 MG/ML SYR/VIAL ONE (14:07)
[2018-12-20] MEDS ORDERED: NEOSTIGMINE METHYLSULFATE 1 MG/ML 10ML VIAL ONE (14:09)
[2018-12-20] MEDS ORDERED: LIDOCAINE HCL 2% 2 ML VIAL/AMP(20MG/ML) INFIL ONE (14:09)
[2018-12-20] MEDS ORDERED: ePHEDrine sulfate 50 MG/ML SYR ONE (14:09)
[2018-12-20] MEDS ORDERED: DEXAMETHASONE SOD INJ 4 MG/ML VIAL ONE (14:09)
[2018-12-20] MEDS ORDERED: ONDANSETRON INJ 2 MG/ML 2 ML VIAL ONE (14:09)
[2018-12-20] MEDS ORDERED: LARYING-O-JET KIT (LTA) ONE (14:09)
[2018-12-20] MEDS ORDERED: PROPOFOL IV EMULSION 10 MG/ML 20 ML VIAL IV ONE (14:09)
[2018-12-20] MEDS ORDERED: GLYCOPYRROLATE 0.2 MG/ML VIAL ONE (14:09)
[2018-12-20] MEDS ORDERED: ROCURONIUM BROMIDE 10 MG/ML 5 ML VIAL ONE (14:09)
[2018-12-20] MEDS ORDERED: FLOSEAL HEMOSTATIC MATRIX 10ML TOP ONE (14:19)
[2018-12-20] MEDS ORDERED: KETOROLAC 30 MG/ML VIAL ONE (14:31)
--- NOTE | 2018-12-20 14:37 | Operative Report ---
Post Operative Report Pre & Post Diagnosis Operation Date: 12/19/18 12:05 Pre-Op Diagnosis: Lumbar Post Laminectomy Syndrome Post-Op Diagnosis: Lumbar Post Laminectomy Syndrome Operation Date: 12/20/18 13:05 Pre-Op Diagnosis: Lumbar Post Laminectomy Syndrome Post-Op Diagnosis: Lumbar Post Laminectomy Syndrome Procedure Operation Date: 12/19/18 12:05 Actual Procedures p Dorsal Column Stimulator Trial(Not Applicable) - Geo Robert DO Operation Date: 12/20/18 13:05 Actual Procedures #1 removal of spinal cord stimulator temporary leads. #2 placement of spinal cord stimulator battery. Surgeon Geo Robert DO Boilermaker Pipe Fitter None Estimated Blood Loss 10 Findings Consistent with Post-Op Diagnosis Specimens None Description of Procedure Patient was met with identified and informed consent obtained. She was then taken to the operative suite underwent intubation and placed in the prone position the Weir table top Heath frame. All bony prominences were padded eyes inspected to ensure no external pressure placed upon the peer at this point the thoracolumbar spine was prepped and draped in a normal sterile fashion. I then opened the previous laminotomy site at T10. Remove the temporary leads. They were attached. And then created a pocket over the right upper buttock per patient's request. A pocket was created large enough to contain the dorsal column stimulator battery. And by way of a trocar the leads were taken to the battery pocket and attached the battery. They were subsequently tested for efficacy. Once this was established the battery was placed within the pocket all incisions were irrigated with antibiotic solution and closed with subcutaneous Vicryl and 4-0 Monocryl for final skin closure. Steri-Strip sterile dressings placed. Patient awakened taken to PACU in stable condition. I attest to the content of the Intraoperative Record and any orders documented therein. Any exceptions are noted below.
[2018-12-20] MEDS: HYDROmorphone INJ 1 MG/ML SYRINGE IV PRN ×10 (14:53→23:35)
[2018-12-20] MEDS ORDERED: INSULIN ASPART 100 UNITS/ML 3 ML PEN SC SCH (15:15)
--- NOTE | 2018-12-20 15:52 | Anesthesiology Progress Note ---
Date of Service December 20, 2018 Anesthesia Post Procedure Vital Signs Vital Signs: Temp Pulse Pulse Pulse Pulse Pulse Resp 12/20/18 15:35 36.6 C 62 18 12/20/18 15:25 55 L 18 12/20/18 15:15 59 L 18 12/20/18 15:05 67 18 12/20/18 14:55 68 18 12/20/18 14:45 36.7 C 80 18 12/20/18 12:26 36.9 C 63 18 12/20/18 07:47 36.8 C 73 16 12/20/18 03:00 36.8 C 70 16 12/20/18 02:03 74 18 12/19/18 23:12 36.3 C L 79 16 12/19/18 22:59 81 16 12/19/18 19:03 36.7 C 88 16 12/19/18 18:07 37.1 C 72 18 12/19/18 16:50 36.7 C 71 18 12/19/18 16:15 36.6 C 75 17 BP BP Pulse Ox 12/20/18 15:35 128/55 L 99 12/20/18 15:25 132/56 L 98 12/20/18 15:15 127/56 L 100 12/20/18 15:05 139/57 L 94 12/20/18 14:55 138/59 L 100 12/20/18 14:45 144/62 H 100 12/20/18 12:26 132/64 98 12/20/18 07:47 138/71 97 12/20/18 03:00 122/67 98 12/20/18 02:03 95 12/19/18 23:12 129/72 97 12/19/18 22:59 96 12/19/18 19:03 133/68 97 12/19/18 18:07 116/64 97 12/19/18 16:50 132/65 97 12/19/18 16:15 127/71 96 Pain Intensity Lower Back: Pain Intensity: 6 Transfer of Care Handoff Completed per policy Notes Mental Status: alert / awake / arousable Patient Amnestic to Procedure: Yes Nausea / Vomiting: adequately controlled Pain: adequately controlled Airway Patency, RR, SpO2: stable & adequate BP & HR: stable & adequate Hydration State: stable & adequate Anesthetic Complications: no major complications apparent
[2018-12-20] MEDS: INSULIN GLARGINE SOLOSTAR 100 UNITS/ML 3 ML PEN SC SCH (21:19)
[2018-12-21] MEDS ORDERED: BISACODYL 5 MG TABEC PO PRN (06:00)
[2018-12-21 07:18] LABS: Hematocrit (blood only) 35.6 % (37-47); Hemoglobin 11.9 g/dL (12.0-16.0); Mean Corpuscular Hgb Conc 33.4 g/dL (32-36); Mean Corpuscular Volume 81.8 fL (80-100); Mean Platelet Volume 11.1 fL (7.4-10.4); Platelet Count 202 K/uL (130-400); RDW Coefficient of Variation 12.7 % (11.5-14.5); RDW Standard Deviation 38.2 fL (36.4-46.3); Red Blood Count 4.35 M/uL (4.2-5.4); White Blood Count 13.13 K/uL (4.8-10.8)
[2018-12-21 07:47] LABS: BUN Creatinine Ratio 17.2 (10-20); Calcium 8.4 mg/dl (8.5-10.1); Creatinine Clr Calc Pharmacy 71.5 ml/min; Est GFR (African American) 90.3; Est GFR (Non-African American) 77.9; Potassium 3.9 mmol/L (3.5-5.1)
[2018-12-21] MEDS: OXYCODONE HCL IR 5 MG TAB (IMMEDIATE RELEASE) PO PRN ×2 (08:09→12:25)
[2018-12-21] MEDS: ATORVASTATIN 10 MG TAB PO SCH (08:10)
[2018-12-21] MEDS: MULTIVITAMIN TAB PO SCH (08:10)
[2018-12-21] MEDS: LOSARTAN POTASSIUM 50 MG TAB PO SCH (08:10)
[2018-12-21] MEDS: ISOSORBIDE MONO EXTENDED REL 30 MG TABCR PO SCH (08:10)
[2018-12-21] MEDS: PANTOprazole 40 MG TAB PO SCH (08:10)
[2018-12-21] MEDS: DOCUSATE SODIUM 100 MG CAP PO SCH (08:10)
--- NOTE | 2018-12-21 08:19 | Anesthesiology Progress Note ---
Date of Service December 21, 2018 Anesthesia Post Procedure Vital Signs Vital Signs: Temp Pulse Pulse Resp BP BP Pulse Ox 12/21/18 07:28 36 C L 59 L 16 157/68 H 94 12/21/18 03:17 36.9 C 61 14 127/65 93 12/20/18 23:09 37.1 C 67 16 120/56 L 94 12/20/18 19:05 37 C 71 16 126/57 L 93 12/20/18 17:53 37.2 C 79 16 116/54 L 96 12/20/18 16:53 36.9 C 68 16 127/62 97 12/20/18 16:24 36.6 C 58 L 16 120/64 96 12/20/18 15:55 36.7 C 62 18 117/65 97 12/20/18 15:35 36.6 C 62 18 128/55 L 99 12/20/18 15:25 55 L 18 132/56 L 98 12/20/18 15:15 59 L 18 127/56 L 100 12/20/18 15:05 67 18 139/57 L 94 12/20/18 14:55 68 18 138/59 L 100 12/20/18 14:45 36.7 C 80 18 144/62 H 100 12/20/18 12:26 36.9 C 63 18 132/64 98 Pain Intensity Lower Back: Pain Intensity: 8 Notes Mental Status: alert / awake / arousable Patient Amnestic to Procedure: Yes Nausea / Vomiting: improving with treatment (resolved at this time) Pain: improving with treatment Airway Patency, RR, SpO2: stable & adequate BP & HR: stable & adequate Hydration State: stable & adequate Anesthetic Complications: no major complications apparent
--- NOTE | 2018-12-21 08:57 | Hospitalist Progress Note ---
Date of Service December 21, 2018 Assessment & Plan (1) Postoperative state: (2) Chronic back pain: POD #1 s/p removal of temporary leads and placement of spinal cord stimulator battery by Dr. Yesica ERIC 10 ml. Hgb stable at 11.9 ( hgb of 13 yesterday) Per ortho for pain control, wound care and activities Continue incentive spirometry, PT/OT when appropriate (3) Diabetes type 2, controlled: A1c of 8.4 Home regimen: Lantus 36 units at night along with lispro 6 units with dinner Will increase Lantus sliding scale 0-25 units, tightened novolog correction scale BSG AC HS. Continue losartan for renal protection (4) COPD (chronic obstructive pulmonary disease): No acute exacerbation Nebulizer treatments as needed Encourage incentive spirometry (5) Hypertension: Blood pressure stable on losartan Monitor BP (6) High cholesterol: Continue atorvastatin (7) Depression: Continue Wellbutrin Mood stable (8) GERD (gastroesophageal reflux disease): Continue PPI (9) Tobacco use: Pt declines nicotine patch (10) DVT prophylaxis: SCDS/Teds per surgery Disposition: per primary service Follow up: PCP CAROLINA Koch PA Patient seen in collaboration with Dr. Brady. Please see addendum. Thank you for this consultation. We will follow the patient with you during their hospital stay. You [facility] a [facility] via pager @ [phone]. Supervising Physician Co-Signing Physician Notes Attending addendum The patient was seen and examined in medical floor She is a status post permanent nerve stimulator placement to control chronic back pain Denies any significant symptoms today On examination No apparent distress at rest Hemodynamically stable Chest clear to auscultate bilaterally- Heart S1-S2 regular- Imaging studies and labs were reviewed Agree with assessment and plan as outlined above by CAROLINA Israel Dr Subjective Patient seen and examined this morning. Pain has improved since yesterday's procedure. Endorses chronic bilateral lower extremity paresthesias. Denies fever, chills, chest pain, SOB, nausea, vomiting, abdominal pain or dysuria. Plan for primary service to discharge home today. Review of Systems Review of Systems: At least ten systems reviewed and negative except as noted in the HPI. Physical Exam Physical Exam: General Appearance: WD/WN, no apparent distress, resting comfortably Head: normocephalic, atraumatic Eyes: normal inspection, PERRL, EOMI ENT: hearing grossly normal, pharynx normal (moist mucous membranes) Neck: supple, no JVD, no adenopathy Respiratory/Chest: lungs clear to auscultation. No wheezes, rales or rhonci. No respiratory distress or accessory muscle use Cardiovascular: regular rate, rhythm, no murmur, normal peripheral pulses Abdomen/GI: normal bowel sounds, soft, non-tender to palpation Extremities/Musculoskelatal: Incision clean, dry, intact. Normal inspection, no calf tenderness, normal capillary refill, no pedal edema Neurologic/Psych: alert, normal mood/affect, oriented x 3 Skin: normal color, warm/dry Results & Data Vital Signs (Past 12 Hours) Vital Signs Temp Pulse Resp BP BP Pulse Ox 12/21/18 07:28 36 C L 59 L 16 157/68 H 94 12/21/18 03:17 36.9 C 61 14 127/65 93 12/20/18 23:09 37.1 C 67 16 120/56 L 94 Laboratory Results Short CBC 12/21/18 Range/Units 06:52 WBC 13.13 H (4.8-10.8) K/uL Hgb 11.9 L (12.0-16.0) g/dL Hct 35.6 L (37-47) % Plt Count 202 (130-400) K/uL BMP 12/21/18 06:52 Sodium 137 Potassium 3.9 Chloride 105 Carbon Dioxide 29 BUN 14 Creatinine 0.80 Glucose 214 H Calcium 8.4 L
[2018-12-21] MEDS: INSULIN ASPART 100 UNITS/ML 3 ML PEN SC SCH ×2 (09:14→12:28)
[2018-12-21] MEDS: BuPROPion SR 100 MG TABCR PO SCH (12:24)
--- NOTE | 2018-12-21 13:05 | Discharge Summary ---
Date of Service December 21, 2018 Admission HPI Per Admitting Provider This is a 62-year-old female that presents with chronic persistent back and leg pain. After failing extensive course of nonoperative care is here for a dorsal column stimulator trial. Principal Diagnosis Chronic back pain Discharge Data Allergies Allergy/AdvReac Type Severity Reaction Status Date / Time No Known Allergies Allergy Verified 12/19/18 10:08 Consultations 12/19/18 15:43 Consult Hospitalist Routine Procedures Performed Operation Date: 12/19/18 12:05 Actual Procedures p Dorsal Column Stimulator Trial(Not Applicable) - Geo Robert DO Operation Date: 12/20/18 13:05 Actual Procedures p Spinal Cord Stimulator Implant(Right) - Geo Robert DO Ordered Studies 12/19/18 12:05 FL fluoroscopy <1hr Routine FL spine 1V any level Routine Hospital Course (1) Chronic back pain greater than 3 months duration: Patient underwent dorsal column stimulator trial. She had very positive response. Subsequently she elected to have formal implantation. She underwent what both procedures without incident. Was subsequently discharged home. Discharge orders instructions from the chart for further review. Total Time Total Time Spent Total Time Spent (In Minutes): 20 minutes Discharge Plan Discharge Items Patient Disposition: Home - Self-Care Reason For Visit: Lumbar Post Laminectomy Syndrome Discharge Diagnosis: Chronic persistent back and bilateral leg pain Discharge Goals: Decrease discomfort Activity: Per 'Additional Instructions' section Non-emergency contact: Primary Care Provider Call non-emergency contact if: you have any medication questions Follow-up/Referrals: PCP,NO [Primary Care Provider] - Diet: Regular Addtl Provider Instructions: ACTIVITY RECOMMENDATIONS: SELF CARE INSTRUCTIONS AFTER A LAMINECTOMY 1. No prolonged sitting (less than 30 minutes for the first 3 weeks after surgery). 2. No bending, lifting more than 5 pounds, or twisting (roll like a log when turning in bed). 3. You may shower 3 days after surgery if no drainage from wound. Thoroughly dry wound. Do not soak in the tub. 4. Please walk as much as you can for exercise. Gradually increase the distance that you walk as your endurance increases. 5. You may drive in 7-10 days if you are comfortable and no longer requiring pain medications. SPECIAL CARE INSTRUCTIONS: VERY IMPORTANT TO READ AND REVIEW A. Your surgical incision has been closed with a cosmetic suture under the skin that will dissolve in about 6 weeks. In 14 days, you can use a pair of clean scissors and cut the suture that is left outside of the skin at the ends of your incision. B. Complications are uncommon, but please contact us if you have any signs or symptoms of: 1. wound infection (fever higher than 102.5 degrees F, redness, separation of wound, drainage, or increasing pain from the incision) 2. blood clots in legs (pain, swelling, redness and warmth in legs) 3. urinary tract infection (fever higher than 102.5 degrees, burning upon urination or increased frequency of urination) 4. nerve problems (inability to walk on your toes or heels, numbness, loss of bowel or bladder control) 5. any other symptoms that concern you. C. Please call the office at if you have any concerns or questions about your operation or recovery. MANAGING PAIN AFTER SPINAL SURGERY 1. Narcotic medication is intended for short-term use and will be provided for surgical pain. Surgical pain usually lasts for a period of 4-6 weeks. Narcotic medication includes Percocet, Vicodin, Darvocet, Tylenol #3 or Lortab. 2. Longer-term pain is more appropriately treated with non-narcotic medication such as Tylenol ES. 3. Muscle spasm is not appropriately treated with narcotics. Muscle relaxers such as Soma, Flexeril or Skelaxin can be used along with Tylenol ES. 4. Remember that we all live with some "aches and pains". This is not unusual or uncommon after an injury or as we get older. 5. We will provide appropriate medication within the normal guidelines of their prescribed use. We will also be very cautious and aware of potential abuse and extended duration of patients' medication needs. 6. Please allow 2-3 days to process refills. Prescriptions will not be mailed but must be picked up at the office. FOLLOW UP VISIT: Keep your scheduled follow-up appointment. Any questions, please call the office at . Prescriptions: New oxycodone 5 mg Tablet 5 mg PO Q4H PRN (Reason: Pain) Qty: 20 RF: 0 Continued cholecalciferol (vitamin D3) [Vitamin D3] 1,000 unit Tablet 1,000 unit PO QDL RF: 0 atorvastatin 10 mg Tablet 10 mg PO QAM RF: 0 insulin lispro 100 unit/mL Insulin Pen 6 unit SUBCUT QDD RF: 0 bupropion HCl [Wellbutrin SR] 100 mg Tablet Sustained-Release 12 Hr 100 mg PO QDL RF: 0 multivitamin Tablet 1 tab PO QAM RF: 0 losartan 50 mg Tablet 50 mg PO QAM RF: 0 ipratropium-albuterol 0.5 mg-3 mg(2.5 mg base)/3 mL Solution For Nebulization 3 ml INHALATION Q8H PRN (Reason: Shortness Of Breath) RF: 0 metformin 1,000 mg Tablet 1,000 mg PO BID RF: 0 oxycodone 5 mg Tablet 5 mg PO Q4 PRN (Reason: Pain) RF: 0 omeprazole 20 mg Tablet,Delayed Release (Dr/Ec) 20 mg PO QAM RF: 0 zolpidem 10 mg Tablet 10 mg PO HS PRN (Reason: Sleep) RF: 0 Lantus Solostar U-100 Insulin 100 unit/mL (3 mL) insulin pen 36 unit subcut HS RF: 0 isosorbide mononitrate 30 mg Tablet Extended Release 24 Hr 30 mg PO DAILY RF: 0 Stand-Alone Forms: [facility] Discharge Orders: Discharge Order (Routine); Ordered 12/21/18 Ordered By: Geo Robert Admission Data Admit Date/Time: 12/19/18 14:04 Attending Provider: Geo Robert Admit Provider: Geo Robert Primary Care Provider: PCP,NO Other Providers: Jeanne Mcgee ; Perfecto Chahal ; Camila Brady Service: Surgical Services Other Interventions: Discharge Summary Assessment (RN) Last Done: 12/21/18 12:39
--- NOTE | 2018-12-22 13:37 | Coding Query ---
CODING QUERY To promote full compliance with coding requirements relating to patient care, provider participation is requested in all cases of concrete finisher uncertainty. Please assist us with the question(s) below: Coding Question(s): The Operative Report documents diagnosis of Lumbar Post Laminectomy Syndrome, Progress Note 12/20/18 by Hospitalist shows an addendum with documentation of Chronic Pain Syndrome s/p Laminectomy treated with neurostimulation and the Discharge Summary documents Chronic back pain greater than 3 months duration. Please clarify below, in your clinical opinion, the diagnosis that best describes the reason for the inpatient admission and procedure. ( ) Lumbar Post Laminectomy Syndrome ( x ) Chronic Pain Syndrome, unspecified ( ) Chronic Pain, not a syndrome ( ) Other: Please specify Physician's Response(s): Thank you Shannan Ray Principal Diagnosis: "that condition established after study, to be chiefly responsible for occasioning the admission of the patient to the hospital for care." Co-Existing Principal Diagnosis: "when two or more diagnoses equally meet the criteria for principal diagnosis as determined by the circumstances of admission, diagnostic work up, and/or therapy provided, and the Alphabetic Index, Tabular List, or another coding guideline does not provide sequencing direction, any one of the diagnoses may be sequenced first." "When the physician has documented what appears to be a current diagnosis in the body of the record, but has not included the diagnosis in the final diagnostic statement, the physician should be asked whether the diagnosis should be added." (Source Coding [facility] 2 QTR90. p3-4) PIERRE
== END 2018-12-21 14:28 | disposition home or self-care (01) | DRG 29 ==
LOC: ASU 09:02 → 3W 14:04